=== PATIENT | female | born 1960 | race Caucasian/White ===

== ENCOUNTER → 2017-02-07 | Outpatient (CLI) | payer OTHER ==
[~2017-02-07] MED LIST: ASCO100072 PO; ASPI-496 PO; CALC-141 PO; CHOL40002 PO; DESM10SP6 NAS; DILT240C55 PO; DIPH25CA61 PO; FAMO40TA61 PO; FLUT1DIS3 INH; MULT-464 PO; OMEG300C PO; PRED10TA14 PO; TAMO20TA PO
== END ==
LOC: CFH 12-30 15:17
PROVIDERS: ATTEND Obstetrics & Gynecology Gynecology
DX: Z12.31 Encounter for screening mammogram for malignant neoplasm of breast (principal); Z92.3 Personal history of irradiation; Z85.3 Personal history of malignant neoplasm of breast
CPT/HCPCS: 77063; G0202

== ENCOUNTER → 2018-03-08 | Outpatient (CLI) | payer OTHER | END | disposition home or self-care (01) | LOC: CFH 14:12 | PROVIDERS: ATTEND Obstetrics & Gynecology | DX: N64.4 Mastodynia (principal); Z92.3 Personal history of irradiation; Z85.3 Personal history of malignant neoplasm of breast | CPT/HCPCS: 76642; 77066 ==

== ENCOUNTER → 2018-03-15 | Outpatient (CLI) | payer OTHER ==
[~2018-03-15] MED LIST changes: +LIDOCAINE 1%, 20ML ONE; +LIDOCAINE 1%-EPI 1:100K, 20ML ONE; +SODIUM BICARBONATE 4.0%, 5ML ONE
== END | disposition home or self-care (01) ==
LOC: CFH 07:40
PROVIDERS: ATTEND Obstetrics & Gynecology
DX: N61.0 Mastitis without abscess (principal); Z85.3 Personal history of malignant neoplasm of breast
CPT/HCPCS: 19083; 77065; 88305; J3490

== ENCOUNTER → 2018-10-02 | Outpatient (CLI) | payer OTHER ==
[~2018-10-02] MED LIST changes: -LIDOCAINE 1%, 20ML ONE; -LIDOCAINE 1%-EPI 1:100K, 20ML ONE; -SODIUM BICARBONATE 4.0%, 5ML ONE
== END | disposition home or self-care (01) ==
LOC: CFH 14:13
PROVIDERS: ATTEND Surgery
DX: N63.20 Unspecified lump in the left breast, unspecified quadrant (principal)
CPT/HCPCS: 77065; G0279

== ENCOUNTER → 2019-04-11 | Outpatient (CLI) | payer OTHER ==
[~2019-04-11] MED LIST changes: +ANAS1TAB PO; +ASCO100019 PO; +CALC1CAP8 PO; +CHOL200024 PO; +CYAN-27 PO; +FAMO-79 PO; +LACT1CAP37 PO; +MOME17SP NS
[2019-04-11 10:20] LABS: BASOPHILS # (AUTO) 0.05 x10^3/uL (0-0.1); BASOPHILS % (AUTO) 1 % (0-1); EOSINOPHILS # (AUTO) 0.45 x10^3/uL (0-0.4); EOSINOPHILS % (AUTO) 5 % (1-7); LYMPHOCYTES % (AUTO) 15 % (22-44); MD NO; MEAN CORPUSCULAR HEMOGLOBIN 26.4 pg (27.0-34.8); MEAN CORPUSCULAR HGB CONC 32.5 g/dL (32.4-35.8); MEAN CORPUSCULAR VOLUME 81.1 fL (80-100); MEAN PLATELET VOLUME 7.5 fL (7.4-10.4); MONOCYTES # (AUTO) 0.75 x10^3/uL (0.2-0.8); MONOCYTES % (AUTO) 8 % (2-9); NEUTROPHILS # (AUTO) 6.83 x10^3/uL (1.8-6.8); NEUTROPHILS % (AUTO) 72 % (42-75); PLATELET COUNT 399 x10^3/uL (130-400); RED BLOOD COUNT 5.11 x10^6/uL (3.82-5.3); RED CELL DISTRIBUTION WIDTH 14.9 % (9.6-15.2)
[2019-04-11 10:24] LABS: INTERNATIONAL NORMALIZED RATIO 0.95 (0.93-1.1)
[2019-04-11 10:51] LABS: CHLORIDE 108 mmol/L (98-107)
[2019-04-11 10:58] LABS: ALANINE AMINOTRANSFERASE 19 U/L (12-78); ALBUMIN 3.5 g/dL (3.4-5.0); ALKALINE PHOSPHATASE 127 U/L (45-117); ANION GAP 5 mmol/L (5-15); BILIRUBIN,TOTAL 0.4 mg/dL (0.2-1.0); CALCIUM 9.4 mg/dL (8.5-10.1); CREATININE 0.76 mg/dL (0.55-1.02); TOTAL PROTEIN 7.6 g/dL (6.4-8.2)
== END | disposition home or self-care (01) ==
LOC: STAR 08:53
PROVIDERS: ATTEND Surgery
DX: Z01.818 Encounter for other preprocedural examination (principal); C50.412 Malignant neoplasm of upper-outer quadrant of left female breast; N64.4 Mastodynia; Z85.3 Personal history of malignant neoplasm of breast; M54.9 Dorsalgia, unspecified; M99.82 Other biomechanical lesions of thoracic region; M53.82 Other specified dorsopathies, cervical region; L30.4 Erythema intertrigo
CPT/HCPCS: 36415; 80053; 85025; 85610; 93005

== ENCOUNTER 2019-04-25 12:20 | Day surgery (SDC) | payer OTHER ==
[~2019-04-25] VITALS: Ht 152.4 cm; Wt 91.0 kg
[2019-04-25] MEDS ORDERED: LACTATED RINGERS 1,000 ML IV SCH (12:38)
[2019-04-25] MEDS ORDERED: GABAPENTIN 300 MG CAPSULE PO ONE (13:00)
[2019-04-25] MEDS ORDERED: ACETAMINOPHEN 500 MG TABLET PO ONE (13:00)
[2019-04-25] MEDS ORDERED: SCOPOLAMINE PATCH, 1.5MG PATCH.TD72 TD ONE (13:00)
[2019-04-25] MEDS ORDERED: PROMETHAZINE 25 MG/ML, 1ML IV PRN (14:00)
[2019-04-25] MEDS ORDERED: MEPERIDINE/PF 25MG/ML,1ML IVPush PRN (14:00)
[2019-04-25] MEDS ORDERED: HALOPERIDOL 5 MG/ML IV PRN (14:00)
[2019-04-25] MEDS ORDERED: OXYcodone 5 MG/5 ML ORAL.SOL UDC PO PRN (14:00)
[2019-04-25] MEDS ORDERED: HYDROmorphone 2 MG/ML, 1ML IVPush PRN (14:00)
[2019-04-25] MEDS ORDERED: LABETALOL 5MG/ML, 20ML IV PRN (14:00)
[2019-04-25] MEDS ORDERED: hydrALAzine 20 MG/ML, 1ML IV PRN (14:00)
[2019-04-25] MEDS ORDERED: BUPIVACAINE/PF 0.5% ONE (15:01)
[2019-04-25] MEDS ORDERED: EPINEPHRINE 1 MG/ML, 1ML ONE (15:01)
[2019-04-25] MEDS ORDERED: ISOSULFAN BLUE 10 MG/ML, 5ML IV ONE (15:02)
[2019-04-25] MEDS ORDERED: MIDAZOLAM 1 MG/ML, 2ML ONE (15:07)
[2019-04-25] MEDS ORDERED: FENTANYL PF 250 MCG/5ML ONE (15:07)
[2019-04-25] MEDS ORDERED: PROPOFOL 10 MG/ML, 20ML ONE (16:41)
[2019-04-25] MEDS ORDERED: SUCCINYLCHOLINE 20 MG/ML, 10ML ONE (16:41)
[2019-04-25] MEDS ORDERED: NEOSTIGMINE 1 MG/ML, 10ML ONE (16:41)
[2019-04-25] MEDS ORDERED: CEFAZOLIN 1,000 MG ONE (16:41)
[2019-04-25] MEDS ORDERED: DEXAMETHASONE 4 MG/ML, 1ML ONE (16:41)
[2019-04-25] MEDS ORDERED: ONDANSETRON 2MG/ML, 2ML ONE (16:41)
[2019-04-25] MEDS ORDERED: GLYCOPYRROLATE 0.2MG/1ML, 5ML ONE (16:41)
[2019-04-25] MEDS ORDERED: ROCURONIUM 10MG/ML,5ML ONE (16:41)
[2019-04-25] MEDS ORDERED: EPHEDRINE 50 MG/ML, 1ML ONE (16:41)
[2019-04-25] MEDS ORDERED: ESMOLOL 100 MG/10 ML ONE (16:55)
[2019-04-25] MEDS ORDERED: OXYcodone 5 MG/5 ML ORAL.SOL UDC ONE (17:12)
[2019-04-25] MEDS ORDERED: FENTANYL PF 100 MCG/2ML ONE (17:12)
[2019-04-25] MEDS: FENTANYL PF 100 MCG/2ML IV PRN ×3 (17:15→17:25)
[2019-04-25] MEDS ORDERED: PROMETHAZINE 25 MG/ML, 1ML ONE (17:35)
[2019-04-25 19:42] VITALS: BP 126/77
== END 2019-04-25 20:55 | disposition home or self-care (01) ==
LOC: OUT 12:20 → 4NE 18:43 → OUT 19:12 → 4NE 19:12 → UNDOADMOB 19:12 → UNDODISOB 20:55 → OUT 20:55
PROVIDERS: ATTEND Surgery
DX: N65.1 Disproportion of reconstructed breast (principal); N61.0 Mastitis without abscess; J45.909 Unspecified asthma, uncomplicated; E11.9 Type 2 diabetes mellitus without complications; K21.9 Gastro-esophageal reflux disease without esophagitis; K58.9 Irritable bowel syndrome, unspecified; Z85.3 Personal history of malignant neoplasm of breast; Z90.49 Acquired absence of other specified parts of digestive tract; Z98.890 Other specified postprocedural states; Z88.1 Allergy status to other antibiotic agents; Z88.8 Allergy status to other drugs, medicaments and biological substances; Z79.84 Long term (current) use of oral hypoglycemic drugs
CPT/HCPCS: 19120; 19316; 19318; 19366; 88305; 88307; C1729; J0171; J0690; J1100; J2250; J2405; J2550; J2704; J2710; J3010; J7120; G0378; J0330

== ENCOUNTER → 2020-01-29 | Outpatient (CLI) | payer OTHER | END | disposition home or self-care (01) | LOC: CFH 12:01 | PROVIDERS: ATTEND Surgery | DX: C50.412 Malignant neoplasm of upper-outer quadrant of left female breast (principal) | CPT/HCPCS: 77066; G0279 ==

== ENCOUNTER → 2021-02-10 | Outpatient (CLI) | payer OTHER ==
[~2021-02-10] MED LIST changes: -LACT1CAP37 PO; +LACT1CAP47 PO
== END | disposition home or self-care (01) ==
LOC: CFH 08:39
PROVIDERS: ATTEND Surgery
DX: Z12.31 Encounter for screening mammogram for malignant neoplasm of breast (principal)
CPT/HCPCS: 77063; 77067